=== PATIENT | male | born 2000 | race Caucasian/White ===

== ENCOUNTER 2020-03-21 12:53 | Emergency (ER) | payer OTHER ==
--- NOTE | 2020-03-21 13:28 | EDM.PDOC ---
ED HPI GENERAL MEDICAL PROBLEM - General Chief Complaint: General Stated Complaint: [phone] PAIN IN NECK AND HEART AFTER ACTIVITY Time Seen by Provider: 03/21/20 13:28 Source of Information: Reports: Patient, RN, RN Notes Reviewed History Limitations: Reports: No Limitations - History of Present Illness INITIAL COMMENTS - FREE TEXT/NARRATIVE: Patient presents to ER with complaint of severe headache in the back of his head. Patient states it first began 2 days ago during intercourse. States during orgasm he felt like someone hit him in the back of the head. Patient st ates the pain was severe for a couple of hours, and dulled but never went away. Today he was doing physical training for the [employer] and strenuous activity, when the pain in the back of the head began again. Patient rates the pain a 4/10 but appears to be in much more distress. States light and sound are painful. States he is not wearing his glasses currently, but no more blurred vision than normal without correction. Denies double vision. Admits to some nausea, denies vomiting. Patient states he had a CT of his brain when he was a child, but does not remember why. Patient denies any health problems. States he is healthy active individual. Onset: Sudden Head Pain Score (Numeric/FACES): 5 - Related Data Allergies Allergy/AdvReac Type Severity Reaction Status Date / Time No Known Allergies Allergy Verified 03/21/20 13:09 Home Meds: Home Meds . [No Known Home Meds] 03/21/20 [History] Past Medical History - Past Health History Medical/Surgical History: Denies Medical/Surgical History HEENT History: Reports: None Cardiovascular History: Reports: None Respiratory History: Reports: None Gastrointestinal History: Reports: None Genitourinary History: Reports: None Musculoskeletal History: Reports: None Neurological History: Reports: None Psychiatric History: Reports: None Endocrine/Metabolic History: Reports: None Hematologic History: Reports: None Immunologic History: Reports: None Oncologic (Cancer) History: Reports: None Dermatologic History: Reports: None - Infectious Disease History Infectious Disease History: Reports: None - Past Surgical History Head Surgeries/Procedures: Reports: None Social & Family History - Family History Family Medical History: Noncontributory - Tobacco Use Smoking Status *Q: Never Smoker Second Hand Smoke Exposure: No - Caffeine Use Caffeine Use: Reports: Coffee, Energy Drinks, Soda - Recreational Drug Use Recreational Drug Use: No ED ROS GENERAL - Review of Systems Review Of Systems: Comprehensive ROS is negative, except as noted in HPI. ED EXAM, GENERAL - Physical Exam Exam: See Below Exam Limited By: No Limitations General Appearance: Alert, WD/WN, Moderate Distress Eye Exam: Bilateral Eye: EOMI, Normal Inspection Ears: Normal External Exam, Hearing Grossly Normal Nose: Normal Inspection Throat/Mouth: Normal Inspection, Normal Voice, No Airway Compromise Head: Atraumatic, Normocephalic, Other (severe tenderness to touch) Neck: Normal Inspection, Supple, Full Range of Motion, Tender Lateral, Tender Midline Respiratory/Chest: No Respiratory Distress, Lungs Clear, Normal Breath Sounds, No Accessory Muscle Use, Chest Non-Tender Cardiovascular: Normal Peripheral Pulses, Regular Rate, Rhythm, No Edema, No Gallop, No JVD, No Murmur, No Rub Peripheral Pulses: 2+: Radial (L), Radial (R) GI/Abdominal: Normal Bowel Sounds, Soft, Non-Tender (Male) Exam: Deferred Rectal (Males) Exam: Deferred Back Exam: Normal Inspection, Full Range of Motion, NT Extremities: Normal Inspection, Normal Range of Motion, Non-Tender, Normal Capillary Refill, No Pedal Edema Neurological: Alert, Oriented, CN II-XII Intact, Normal Cognition, Normal Gait, Normal Reflexes, No Motor/Sensory Deficits Psychiatric: Normal Affect, Normal Mood, Anxious Skin Exam: Warm, Dry, Intact, Normal Color, No Rash Lymphatic: No Adenopathy Course - Vital Signs Last Recorded V/S: Last Vital Signs Temp 97.2 F 03/21/20 13:09 Pulse 84 03/21/20 13:09 Resp 18 03/21/20 13:09 BP 128/80 03/21/20 13:09 Pulse Ox 98 03/21/20 13:09 - Orders/Labs/Meds Orders: Active Orders 24 hr Category Date Time Status EKG Documentation Completion [RC] STAT Care 03/21/20 13:07 Active Labs: Laboratory Tests 03/21/20 03/21/20 Range/Units 13:39 13:39 WBC 11.0 H (5.0-10.0) 10^3/uL RBC 5.18 (4.6-6.2) 10^6/uL Hgb 15.7 (14.0-18.0) g/dL Hct 43.9 (40.0-54.0) % MCV 84.7 (80-100) fL MCH 30.3 (27.0-34.0) pg MCHC 35.8 H (33.0-35.0) g/dL Plt Count 178 (150-450) 10^3/uL Neut % (Auto) 84.3 H (42.2-75.2) % Lymph % (Auto) 9.7 L (20.5-50.1) % [place] % (Auto) 5.9 (2-8) % Eos % (Auto) 0.0 L (1.0-3.0) % Baso % (Auto) 0.1 (0.0-1.0) % Sodium 139 (136-145) mmol/L Potassium 4.6 (3.5-5.1) mmol/L Chloride 102 (98-107) mmol/L Carbon Dioxide 28 (21-32) mmol/L Anion Gap 13.6 H (7-13) mEq/L BUN 12 (7-18) mg/dL Creatinine 1.47 H (0.70-1.30) mg/dL Est Cr Clr Drug Dosing 89.83 mL/min Estimated GFR (MDRD) > 60 BUN/Creatinine Ratio 8.2 (No establ ref range) Glucose 85 (74-99) mg/dL Calcium 9.6 (8.5-10.1) mg/dL Total Bilirubin 0.6 (0.2-1.0) mg/dL AST 21 (15-37) U/L ALT 28 (16-63) U/L Alkaline Phosphatase 82 (46-116) U/L Troponin I < 0.017 (0.000-0.056) ng/mL Total Protein 8.0 (6.4-8.2) g/dL Albumin 4.8 (3.4-5.0) g/dL Globulin 3.2 Albumin/Globulin Ratio 1.5 Meds: Medications Discontinued Medications Generic Name Dose Route Start Last Admin Trade Name Freq PRN Reason Stop Dose Admin Diphenhydramine HCl 50 mg 03/21/20 14:33 03/21/20 14:46 Benadryl IVPUSH 03/21/20 14:34 50 mg ONETIME ONE Administration Sodium Chloride 1,000 mls @ 999 mls/hr 03/21/20 14:33 03/21/20 14:42 Normal Saline IV 03/21/20 15:33 999 mls/hr .BOLUS ONE Administration Ketorolac Tromethamine 30 mg 03/21/20 14:33 03/21/20 14:45 Toradol IVPUSH 03/21/20 14:34 30 mg ONETIME ONE Administration - Radiology Interpretation Free Text/Narrative:: Head CT wo contrast: 1. Uniformly thick bony calvarium. No sign of skull fracture, underlying brain contusion, or epidural/subdural hematoma. Symmetric clear pneumatization of the paranasal and mastoid sinuses i.e. no inflammation. 2. No supratentorial or posterior fossa mass lesion. No hydrocephalus. 3. Symmetric graywhite matter pattern. Underlying mirror image normal ventricular system. 4. No focal areas of ischemic infarct or signs of encephalomalacia. No arachnoid cyst. 5. No sign of acute intracerebral, intraventricular, or subarachnoid bleed. See rad report Departure - Departure Time of Disposition: 15:43 Disposition: Home, Self-Care 01 Clinical Impression: Migraine Qualifiers: Migraine type: unspecified Status migrainosus presence: with status migrainosus Intractability: not intractable Qualified Code(s): G43.901 - Migraine, unspecified, not intractable, with status migrainosus - Discharge Information *PRESCRIPTION DRUG MONITORING PROGRAM REVIEWED*: No *COPY OF PRESCRIPTION DRUG MONITORING REPORT IN PATIENT RITA: No Forms: ED Department Discharge Additional Instructions: May use Tylenol and/or ibuprofen as directed for headache Drink plenty of fluids Follow-up with your primary care provider for possible MRI/MRV Return to ER with any worsening of symptoms Sepsis Event Note (ED) - Evaluation Sepsis Screening Result: No Definite Risk - Focused Exam Vital Signs: Vital Signs Temp Pulse Resp BP Pulse Ox 03/21/20 13:09 97.2 F 84 18 128/80 98 - My Orders Last 24 Hours: My Active Orders 03/21/20 13:07 EKG Documentation Completion [RC] STAT - Assessment/Plan Last 24 Hours: My Active Orders 03/21/20 13:07 EKG Documentation Completion [RC] STAT
[2020-03-21 14:12] LABS: ANION GAP 13.6 mEq/L (7-13); CHLORIDE,CL 102 mmol/L (98-107); SODIUM,NA 139 mmol/L (136-145)
--- NOTE | 2020-03-21 14:19 | CT ---
EXAMINATION: Head wo Cont SEX: Male AGE: 19 years CLINICAL HISTORY: 19-year-old 270 pound male with severe headache (induced with strenuous activity). No known trauma. Scan technique: Volume acquisition of data emergency unenhanced CT scan of the head and brain obtained with patient lying supine on the Siemens multislice scanner [place], [place]. All data archived in the PAC system for storage, reformatting axial/sagittal/coronal planes and study. Interpretation: Negative exam. 1. Uniformly thick bony calvarium. No sign of skull fracture, underlying brain contusion or epidural/subdural hematoma. Symmetric clear pneumatization of the paranasal and mastoid sinuses i.e. no inflammation. 2. No supratentorial or posterior fossa mass lesion. No hydrocephalus. 3. Symmetric bates-white matter pattern. Underlying mirror-image normal ventricular system. 4. No focal areas of ischemic infarct or signs of encephalomalacia. No arachnoid cyst. 5. No sign of acute intracerebral, intraventricular or subarachnoid bleed.
[2020-03-21] MEDS ORDERED: Sodium Chloride 0.9% 1,000 ML IV ONE (14:33)
[2020-03-21] MEDS ORDERED: diphenhydrAMINE 50 MG/ML SDV IVPUSH ONE (14:33)
[2020-03-21] MEDS ORDERED: Ketorolac 30 MG/ML SDV IVPUSH ONE (14:33)
== END 2020-03-21 15:55 | disposition home or self-care (01) ==
LOC: DL.ED 12:53
DX: G43.901 Migraine, unspecified, not intractable, with status migrainosus (principal)
CPT/HCPCS: 36415; 70450; 80053; 84484; 85025; 93005; 96374; 96375; 99284; J1200; J1885; J7030